=== PATIENT | female | born 1945 | race Caucasian/White ===

== ENCOUNTER → 2018-09-23 | Day surgery (SDC) | payer MEDICARE, OTHER ==
[2018-09-18 14:30] LABS: BASOPHILS % 0.4 % (0.0-1.0); EOSINOPHILS # (AUTO) 0.1 (0.0-0.4); EOSINOPHILS % 1.3 % (0.0-6.0); HEMATOCRIT 41.5 % (34.2-44.1); LYMPHOCYTES # (AUTO) 1.8 (1.0-3.2); LYMPHOCYTES % 25.6 % (18.0-39.1); MEAN CORPUSCULAR HEMOGLOBIN 31.7 pg (28-32); MEAN CORPUSCULAR HGB CONC 33.7 g/dL (31-35); MEAN CORPUSCULAR VOLUME 94.1 fL (81-99); MONOCYTES # (AUTO) 0.5 (0.2-0.8); MONOCYTES % 7.5 % (4.4-11.3); NEUTROPHILS # (AUTO) 4.6 (2.1-6.9); NEUTROPHILS % 64.8 % (38.7-80.0); PLATELET COUNT 301 x10e3/uL (140-360); RED BLOOD COUNT 4.41 x10e6/uL (3.6-5.1); RED CELL DISTRIBUTION WIDTH 13.2 % (11.7-14.4)
[~2018-09-23] MED LIST: ALEVE220 M1 PO; AMLODIPINE BES2.5 MG PO; ATENOLOL50 MG PO; BIOTIN2500 MCG PO; DOCUSATE SODIU100 MG PO; FENTANYL CITRATE/PF 100MCG/2 ML INJ ONE; LIOTHYRONINE SO5 MCG PO; PROLIA60 MG/1 ML INJ; PROPOFOL IV EMULSION 10 MG/ML 50 ML VIAL ONE; SLEEP AID25 M1 PO; SPIRONOLACTONE25 MG PO; SYNTHROID88 MCG PO; TYLENOL EXTRA500 MG PO; VITAMIN D32000 UNIT PO
--- OUTSIDE RECORDS SUMMARY | 2018-09-23 05:57 | XMS REPORT | Clinical Summary ---
Author Author [facility] Address Unknown Phone Unavailable Care Team Providers Care Animal Husbandry Technician Name Role Phone Swain, Ele Ryan PCP Allergies Comments Active Allergy Reactions Severity Noted Date Morphine Sulfate Itching, 05/29/2016 Nausea Only Medications End Date Status Medication Sig Dispensed Refills Start Date Active levothyroxine (SYNTHROID, Take 88 mcg 0 LEVOTHROID) 88 MCG tablet by mouth Every morning on an empty stomach. Active atenolol (TENORMIN) 50 MG Take 50 mg by 0 tablet mouth daily. Active liothyronine (CYTOMEL) 5 Take 5 mcg by 0 MCG tablet mouth daily. Active spironolactone Take 100 mg 0 (ALDACTONE) 100 MG tablet by mouth daily. Active spironolactone Take 50 mg by 0 (ALDACTONE) 50 MG tablet mouth daily. Active cholecalciferol, vitamin Take by 0 D3, 2,000 unit Cap mouth. Active calcium carbonate Take 1,200 mg 0 (OS-SILVIA) 600 mg (1,500 by mouth mg) Tab daily. Active b complex vitamins tablet Take 1 tablet 0 by mouth daily. Active amLODIPine (NORVASC) 2.5 Take 2.5 mg 0 MG tablet by mouth daily. Active Missing or Non-Formulary Take by mouth 0 Medication nightly Acetaminophen 500 mg with sleep aid HCI 25 mg. . Active biotin 2,500 mcg Tab Take by 0 mouth. Active LORATADINE ORAL Take by 0 mouth. Active Problems Not on file Social History Date Tobacco Use Types Packs/Day Years Used Never Smoker Alcohol Use Drinks/Week oz/Week Comments Yes 1 Standard 0.5 drinks or equivalent Sex Assigned at Date Recorded Not on file Industry Job Start Date Occupation Not on file Not on file Not on file Travel End Travel History Travel Start No recent travel history available. Last Filed Vital Signs Not on file Plan of Treatment Not on file Implants Device Identifier Shelf Expiration Date Model / Serial / Lot Implanted Type Area Manufactur er 04/03/2021 [facility] / [id number] / Natrelle Inspira Cohesive Breast IMPLANTS Right: Breast ALLERGAN Implant BREAST Implanted: Qty: 1 on 06/12/2016 by Dioni Brown MD 04/03/2021 [id number] / [id number] / Cornele Inspneftaly Cohesive Breast Left: Breast ALLERGAN Implant Implanted: Qty: 1 on 06/12/2016 by Dioni Brown MD Results Not on fileafter 09/22/2017 Insurance Payer Benefit Subscriber ID Type Phone Address Plan / Group HUMANA - MGD CARE HUMANA HMO xxxxxxxxx HMO/POS POS SPECIAL HANDLING AESTHETIC xxxxxxxxx SURGERY PROGRAM
--- OUTSIDE RECORDS SUMMARY | 2018-09-23 05:57 | XMS REPORT | Summary of Care ---
Author Author [facility] Organization [facility] Address Unknown Phone Unavailable Encounter LACHO Crabtree(THEODORE) [id number] Date(s): 12/22/16 - 12/22/16 [facility] [address] [place], [place] [address]- [phone] Discharge Diagnosis: Cellulitis of leg, right Discharge Disposition: Home or Self Care Attending Physician: Santiago Rahman MD Vital Signs Most recent to 1 2 oldest [Reference Range]: Height 165.1 cm (12/22/16 7:53 PM) Blood Pressure 129/60 mmHg 142/70 mmHg [90-140/60-90 mmHg] (12/22/16 9:10 PM) *HI* (12/22/16 7:53 PM) Respiratory Rate 18 BRMIN 18 BRMIN [14-20 BRMIN] (12/22/16 9:10 PM) (12/22/16 7:53 PM) Peripheral Pulse 72 bpm 72 bpm Rate [60-100 bpm] (12/22/16 9:10 PM) (12/22/16 7:53 PM) Weight 52.727 kg (12/22/16 7:53 PM) Body Mass Index 19.34 m2 (12/22/16 7:53 PM) Problem List Condition Effective Dates Status Health Status Informant Abnormal Active EKG(Confirmed) Hyperkalemia(Confirm Active ed) Chronic Resolved hypertension(Confirm ed) Hypertension(Confirm Active ed) Hyponatremia(Confirm Active ed) Adult Resolved hypothyroidism(Confi rmed) Hypothyroid(Confirme Active d) Hair loss(Confirmed) Active Osteoporosis(Confirm Active ed) Vitamin D Active deficiency(Confirmed ) Allergies, Adverse Reactions, Alerts Substance Reaction Severity Status morphine Itching Active Nausea Medications clindamycin 600 mg, Route: IM, ONCE, Dosing Weight 52.727, kg, Priority: STAT, Start date: 0 9/03/17 20:25:00 CDT, Duration: 1 doses or times, Stop date: 12/22/16 20:25:00 C DT, ABX Indication: Other (specify in Comments) Start Date: 12/22/16 Stop Date: 12/22/16 Status: Discontinued clindamycin 600 mg, 4 mL, Route: IM, Drug form: INJ, ONCE, Dosing Weight 52.727, kg, Priorit y: STAT, Start date: 12/22/16 20:05:00 CDT, Duration: 1 doses or times, Stop bryan e: 12/22/16 20:05:00 CDT, ABX Indication: Skin/Soft Tissue Infection Notes: (clindamycin 150 mg/1 ml (600 mg/4 ml VL) INJ) (Same As: Cleocin) Start Date: 12/22/16 Stop Date: 12/22/16 Status: Completed clindamycin 300 mg oral capsule 300 mg=1 cap, PO, Q6H, X 10 day, # 40 cap, 0 Refill(s) Start Date: 12/22/16 Stop Date: 01/01/17 Status: Ordered Results No data available for this section Immunizations No data available for this section Procedures Procedure Date Related Diagnosis Body Site Removal of gallbladder 11/14/03 Breast augmentation 04/04/00 History of total hysterectomy 03/28/94 Operative procedure on foot 10/12/91 Social History Social History Type Response Employment/School Status: Retired. Work/School description: [employer]. Smoking Status Never smoker; Type: Cigarettes; Exposure to Tobacco Smoke None; Cigarette Smoking Last 365 Days No; Reg Smoking Cessation Counseling No Assessment and Plan No data available for this section
--- OUTSIDE RECORDS SUMMARY | 2018-09-23 05:57 | XMS REPORT | Summary of Care ---
Author Author [facility] Organization [facility] Address Unknown Phone Unavailable Encounter LACHO Crabtree(THEODORE) [id number] Date(s): 06/09/18 - 06/09/18 [facility] [address] [place] [address]- [phone] Discharge Disposition: Home or Self Care Attending Physician: Richardson Chisholm MD Vital Signs Most recent to 1 oldest [Reference Range]: Height 160.02 cm (06/09/18 9:41 AM) Temperature Oral 97.5 DegF [96.4-99.1 DegF] (06/09/18 9:41 AM) Blood Pressure 116/58 mmHg [90-140/60-90 mmHg] (06/09/18 9:41 AM) Respiratory Rate 16 BRMIN [14-20 BRMIN] (06/09/18 9:41 AM) Peripheral Pulse 79 bpm Rate [60-100 bpm] (06/09/18 9:41 AM) Weight 53.182 kg (06/09/18 9:41 AM) Body Mass Index 20.77 m2 (06/09/18 9:41 AM) Problem List Condition Effective Dates Status Health Status Informant Abnormal Active EKG(Confirmed) Hyperkalemia(Confirm Active ed) Chronic Resolved hypertension(Confirm ed) Hypertension(Confirm Active ed) Hyponatremia(Confirm Active ed) Adult Resolved hypothyroidism(Confi rmed) Hypothyroid(Confirme Active d) Hair loss(Confirmed) Active Osteoporosis(Confirm Active ed) Vitamin D Active deficiency(Confirmed ) Allergies, Adverse Reactions, Alerts Substance Reaction Severity Status morphine Nausea Active Itching Medications Shingrix Shingrix, See Instructions, disp and admin series, # 2 ea, Refill(s) 0 Start Date: 06/09/18 Status: Ordered Results No data available for this section Immunizations Given and Recorded Vaccine Date Status Refusal Reason influenza virus vaccine, inactivated 01/19/18 Recorded influenza virus vaccine, inactivated 01/19/17 Recorded pneumococcal 13-valent vaccine 06/05/17 Given zoster vaccine live 03/21/13 Recorded Procedures Procedure Date Related Diagnosis Body Site Status Colonoscopy1 04/21/09 Completed Removal of gallbladder 11/14/03 Completed Breast augmentation 04/04/00 Completed History of total hysterectomy 03/28/94 Completed Operative procedure on foot 10/12/91 Completed 1self report, no polyps, cleared x 10 Social History Social History Type Response Employment/School Status: Retired. Work/School description: [employer]. Smoking Status Never smoker; Type: Cigarettes; Exposure to Tobacco Smoke None; Cigarette Smoking Last 365 Days No; Reg Smoking Cessation Counseling No entered on: 06/09/18 Assessment and Plan No data available for this section
--- OUTSIDE RECORDS SUMMARY | 2018-09-23 05:57 | XMS REPORT | Continuity of Care Document ---
Author Author [facility] Address Unknown Phone Unavailable Problems Problem Status Onset Date Classification Date Reported Comments Source Discharge Diagnosis: Cellulitis of leg, right 12/22/2016 12/25/2016 [facility] BITE Active 12/21/2016 [facility] M80.0 - AGE-RELATED OSTEOPOROSIS WITH Active 06/17/2016 [facility] Outpatient [facility] M81.0 - AGE-RELATED OSTEOPOROSIS W/O C Active 06/17/2016 [facility] Abnormal EKG Active Problem 07/31/2018 Medical [facility],[id number] Hyperkalemia Active Problem 07/31/2018 [facility],[id number] Chronic hypertension Resolved Problem 07/31/2018 [facility],[id number] Hypertension Active Problem 07/31/2018 [facility],[id number] Hyponatremia Active Problem 07/31/2018 [facility],[id number] Adult hypothyroidism Resolved Problem 07/31/2018 [facility],[id number] Hypothyroid Active Problem 07/31/2018 [facility] Outpatient [facility],[id number] Hair loss Active Problem 07/31/2018 [facility] Outpatient [facility],[id number] Osteoporosis Active Problem 07/31/2018 [facility],[id number] Vitamin D deficiency Active Problem 07/31/2018 [facility],[id number] Medications Medication Details Route Status Patient Instructions Ordering Provider Order Date Source Shingrix Shingrix, See Instructions, disp and admin series, # 2 ea, Refill(s) 0 Active 06/09/2018 [facility] Atenolol 50 MG Oral Tablet See Instructions, # 90 tab, Refill(s) 3, TAKE 1 TABLET DAILY, Pharmacy: [facility] Active 09/26/2017 [facility] amLODIPine 2.5 mg oral tablet 2.5 mg=1 tab, PO, Daily, # 90 tab, 0 Refill(s), Pharmacy: [facility] No Longer Active 05/21/2017 [facility] clindamycin 300 mg oral capsule 300 mg=1 cap, PO, Q6H, X 10 day, # 40 cap, 0 Refill(s) Active 12/23/2016 [facility] Clindamycin 600 mg, Route: IM, ONCE, Dosing Weight 52.727, kg, Priority: STAT, Start date: 12/22/16 20:25:00 CDT, Duration: 1 doses or times, Stop date: 12/22/16 20:25:00 CDT, ABX Indication: Other (specify in C omments) Inactive 12/23/2016 [facility] Clindamycin 600 mg, 4 mL, Route: IM, Drug form: INJ, ONCE, Dosing Weight 52.727, kg, Priority: STAT, Start date: 12/22/16 20:05:00 CDT, Duration: 1 doses or times, Stop date: 12/22/16 20:05:00 CDT, ABX Indication: Skin/Soft Tissue InfectionNotes: (clindamycin 150 mg/1 ml (600 mg/4 ml VL) INJ) (Same As: Cleocin) Inactive 12/23/2016 [facility] Allergies, Adverse Reactions, Alerts Substance Category Reaction Severity Reaction type Status Date Reported Comments Source morphine Assertion Nausea, Itching Drug allergy Active [id number] Immunizations Immunization Date Given Site Status Last Updated Comments Source influenza virus vaccine, inactivated 01/19/2018 completed Do [id number],[facility] pneumococcal 13-valent vaccine 06/05/2017 Right Deltoid completed [facility],[id number] influenza virus vaccine, inactivated 01/19/2017 completed [facility],[id number] zoster vaccine live 03/21/2013 completed [facility],[id number] Results Order Name Results Value Reference Range Date Interpretation Comments Source Bone Density DXA [employer] MA Bone Density [employer] MA BONE DENSITY ASSESSMENT: 07/29/2018 CLINICAL DATA: Post menopausal. M81.0 Age related osteoporosis without current pathological fracture. /M81.0 Osteoporosis RISK FACTORS: race. COMPARISON: 07/16/2016 Right total femur area using a Hologic unit from [facility] with reported medium fracture risk, BMD of 0.723g/cm2, T-score of -1.80, and Z- score of -0.30. 07/16/2016 AP L1-L4 region of spine using a Hologic unit from [facility] with reported medium fracture risk, BMD of 0.875g/cm2, T-score of - 1.60, and Z-score of 0.60. 07/16/2016 Left femur neck using a Hologic unit from [facility] with reported medium fracture risk, BMD of 0.631g/cm2, T-score of -2.00, and Z- score of -0.10. FINDINGS: Bone density evaluation was performed 07/29/2018 on the right femur neck using a Hologic unit. The BMD average for the exam is 0.648 g/cm2. The T-score is -1.80 and the Z-score is 0.10. This matches the World Health Organization's criteria for osteopenia and places the patient at a medium risk for fracture. An additional bone density evaluation was performed 07/29/2018 on the left femur neck using a Hologic unit. The BMD average for the exam is 0.614 g/cm2. The T- score is -2.10 and the Z-score is -0.20. Since the previous similar exam of 07/16/2016, there has been a -0.017 or -2.7% change in the BMD value which represents no significant interval change in bone density. This matches the World Health Organization's criteria for osteopenia and places the patient at a medium risk for fracture. An additional bone density evaluation was performed 07/29/2018 on the right total femur area using a Hologic unit. The BMD average for the exam is 0.673 g/cm2. The T-score is -2.20 and the Z-score is -0.60. Since the previous similar exam of 07/16/2016, there has been a -0.050 or -6.9% change in the BMD value which represents no significant interval change in bone density. This matches the World Health Organization's criteria for osteopenia and places the patient at a medium risk for fracture. An additional bone density evaluation was performed 07/29/2018 on the left total femur area using a Hologic unit. The BMD average for the exam is 0.692 g/cm2. The T-score is -2.00 and the Z-score is -0.40. This matches the World Health Organization's criteria for osteopenia and places the patient at a medium risk for fracture. An additional bone density evaluation was performed 07/29/2018 on the AP L1-L4 region of spine using a Hologic unit. The BMD average for the exam is 0.861 g/cm2. The T-score is -1.70 and the Z-score is 0.60. Since the previous similar exam of 07/16/2016, there has been a -0.014 or -1.6% change in the BMD value which represents no significant interval change in bone density. This matches the World Health Organization's criteria for osteopenia and places the patient at a medium risk for fracture. IMPRESSION: OSTEOPENIA Patient is at medium risk for fracture. Patient consult w/primary care provider is recommended. This exam was interpreted at [id number] at [facility]. Maranda cohen/chavez:07/30/2018 08:05:13 Cover Cutter(s): Bimal Evans [facility] 07/29/2018 - - Read by: Maranda Cameron MD Dictated Date/time: 07/30/18 08:05 Electronically Signed by: Maranda Cameron MD 07/30/18 08:05 FINAL REPORT [facility] Bone Density DXA [employer] MA Bone Density [employer] MA - Bone Density [employer] MA BONE DENSITY EVALUATION: 07/16/2016 CLINICAL DATA: Post menopausal. M80.0. RISK FACTORS: race and history of previous fracture. FINDINGS: Bone density evaluation was performed 07/16/2016 on the AP L1-L4 region of spine using a Hologic unit. The BMD average for the exam is 0.875 g/cm2. The T-score is -1.60 and the Z-score is 0.60. This matches the World Health Organization's criteria for osteopenia and places the patient at a medium risk for fracture. An additional bone density evaluation was performed 07/16/2016 on the right femur neck using a Hologic unit. The BMD average for the exam is 0.635 g/cm2. The T-score is -1.90 and the Z-score is -0.10. This matches the World Health Organization's criteria for osteopenia and places the patient at a medium risk for fracture. An additional bone density evaluation was performed 07/16/2016 on the right total femur area using a Hologic unit. The BMD average for the exam is 0.723 g/cm2. The T-score is -1.80 and the Z-score is -0.30. This matches the World Health Organization's criteria for osteopenia and places the patient at a medium risk for fracture. An additional bone density evaluation was performed 07/16/2016 on the left femur neck using a Hologic unit. The BMD average for the exam is 0.631 g/cm2. The T- score is -2.00 and the Z-score is -0.10. This matches the World Health Organization's criteria for osteopenia and places the patient at a medium risk for fracture. An additional bone density evaluation was performed 07/16/2016 on the left total femur area using a Hologic unit. The BMD average for the exam is 0.700 g/cm2. The T-score is -2.00 and the Z-score is -0.50. This matches the World Health Organization's criteria for osteopenia and places the patient at a medium risk for fracture. IMPRESSION: OSTEOPENIA Patient is at medium risk for fracture. Professional services are provided by the [facility]. This exam was dictated and interpreted by [id number] at [facility]. Maranda Cameron M.D. to/penrad:07/17/2016 08:36:39 Cover Cutter: Kirsty GAITAN(Sarah)(M), [facility] 07/16/2016 - - Read by: Maranda Cameron MD Dictated Date/time: 07/17/16 08:36 Electronically Signed by: Maranda Cameron MD 07/17/16 08:36 FINAL REPORT [facility] Outpatient [facility] Vital Signs Vital Sign Value Date Comments Source Height 160.02 cm 06/09/2018 [facility] BMI Calculated 20.77 06/09/2018 [facility] Heart Rate 79 06/09/2018 [facility] Systolic (mm Hg) 116 06/09/2018 [facility] Diastolic (mm Hg) 58 06/09/2018 [facility] Temperature Oral (F) 97.5 F 06/09/2018 [facility] Respitory Rate 16 06/09/2018 [facility] Weight 53.182 06/09/2018 [facility] Respitory Rate 16 06/05/2017 [facility] Weight 53.295 06/05/2017 [facility] Temperature Oral (F) 98.5 F 06/05/2017 [facility] Heart Rate 70 06/05/2017 Medical [facility] BMI Calculated 20.81 06/05/2017 [facility] Systolic (mm Hg) 113 06/05/2017 [facility] Diastolic (mm Hg) 75 06/05/2017 [facility] Height 160.02 cm 06/05/2017 [facility] Heart Rate 72 12/23/2016 [facility] Respitory Rate 18 12/23/2016 [facility] Systolic (mm Hg) 129 12/23/2016 [facility] Diastolic (mm Hg) 60 12/23/2016 [facility] Weight 52.727 12/23/2016 [facility] BMI Calculated 19.34 12/23/2016 [facility] Height 165.1 cm 12/23/2016 [facility] Respitory Rate 18 12/23/2016 [facility] Heart Rate 72 12/23/2016 [facility] Systolic (mm Hg) 142 12/23/2016 [facility] Diastolic (mm Hg) 70 12/23/2016 [facility] Encounters Location Location Details Encounter Type Encounter Number Reason For Visit Attending Provider ADM Date DC Date Status Source [facility]patient [facility] Outpt Diag Services [id number] Non Physician 07/16/2016 07/17/2016 [facility] Outpatient Imaging [facility] Emergency [id number] Santiago Josiah 12/23/2016 12/23/2016 [facility] Phone Message [id number] 05/20/2017 05/22/2017 [facility] Primary Care Summer Lovelock [facility] Outpatient [id number] Richardson Do 06/05/2017 06/06/2017 [facility] Primary [facility] Phone Message [id number] 09/09/2017 09/11/2017 Medical Group [facility] Phone Message [id number] 09/19/2017 09/21/2017 [facility] Phone Message [id number] 09/25/2017 09/27/2017 [facility] Primary Care Summer Lovelock [facility] Outpatient [id number] Richardson Do 06/09/2018 06/10/2018 Medical [facility] Outpatient [facility] [place] Outpt Diag Services [id number] Lydia De Luna 07/29/2018 07/30/2018 [id number] Procedures Procedure Code Date Perfomer Comments Source Colonoscopy<sup>1</sup> [id number] 04/21/2009 self report, no polyps, cleared x 10 [facility] Colonoscopy<sup>1</sup> [id number] 04/21/2009 self report, no polyps, cleared x 10 [id number] Removal of gallbladder [id number] 11/14/2003 [facility] Removal of gallbladder [id number] 11/14/2003 [facility] Outpatient [facility] Removal of gallbladder [id number] 11/14/2003 [id number] Removal of gallbladder [id number] 11/14/2003 [facility] Breast augmentation [id number] 04/04/2000 [facility] Breast augmentation [id number] 04/04/2000 [facility] Breast augmentation [id number] 04/04/2000 [id number] Breast augmentation [id number] 04/04/2000 [facility] History of total hysterectomy [id number] 03/28/1994 Medical Group History of total hysterectomy [id number] 03/28/1994 [facility]patient [facility] History of total hysterectomy [id number] 03/28/1994 [id number] History of total hysterectomy [id number] 03/28/1994 [facility] Operative procedure on foot [id number] 10/12/1991 Medical [facility] Operative procedure on foot [id number] 10/12/1991 [facility]patient [facility] Operative procedure on foot [id number] 10/12/1991 [id number] Operative procedure on foot [id number] 10/12/1991 [facility]
--- OUTSIDE RECORDS SUMMARY | 2018-09-23 05:58 | XMS REPORT | Summary of Care ---
Author Author [facility] Organization [facility] Address Unknown Phone Unavailable Encounter HQ Encntr_alimichael(FIN) [id number] Date(s): 09/19/17 - 09/20/17 [facility] [address] [place], [place] [address]- [phone] Vital Signs No data available for this section Problem List Condition Effective Dates Status Health Status Informant Abnormal Active EKG(Confirmed) Hyperkalemia(Confirm Active ed) Chronic Resolved hypertension(Confirm ed) Hypertension(Confirm Active ed) Hyponatremia(Confirm Active ed) Adult Resolved hypothyroidism(Confi rmed) Hypothyroid(Confirme Active d) Hair loss(Confirmed) Active Osteoporosis(Confirm Active ed) Vitamin D Active deficiency(Confirmed ) Allergies, Adverse Reactions, Alerts Substance Reaction Severity Status morphine Nausea Active Itching Medications No data available for this section Results No data available for this section Immunizations Given and Recorded Vaccine Date Status Refusal Reason pneumococcal 13-valent vaccine 06/05/17 Given influenza virus vaccine, inactivated 01/19/17 Recorded zoster vaccine live 03/21/13 Recorded Procedures Procedure [...] Reg Smoking Cessation Counseling No entered on: 06/05/17 Assessment and Plan No data available for this section
--- OUTSIDE RECORDS SUMMARY | 2018-09-23 05:58 | XMS REPORT ---
[facility] Address Unknown Phone Unavailable Care Team Providers Care Edi Architect Name Role Phone Unavailable Unavailable Problems This patient has no known problems. Allergies, Adverse Reactions, Alerts This patient has no known allergies or adverse reactions. Medications This patient has no known medications. Results Test Description Test Time Test Comments Text Results Atomic Results Result Comments MM, DIGITAL, MAMMO, SCREENING, IMPLANT, BILATERAL INCLUDING CAD 2017-06-11 14:01:00 Reason for Exam:->screening #[id number] - MM, DIGITAL, MAMMO, SCREENING, IMPLANT, BILATERAL INCLUDING CADBILATERAL DIGITAL SCREENING MAMMOGRAM 3D/2D WITH CAD WITH AUGMENTATION: 06/11/2017Comparison is made to exams dated: 12/26/2015 mammogram and 10/20/2014 mammogram - [facility]. The tissue of both breasts is heterogeneously dense. This may lower the sensitivity of mammography. Bilateral prepectoral silicone implants are present. Implants may obscure breast parenchyma, making mammographic interpretation difficult. Tomosynthesis 3D imaging of the breast was also performed. Current study was also evaluated with a Computer Aided Detection (CAD) system. Benign appearing vascular calcifications are present in the right breast. There is a post-surgical scar associated with the left breast. Examination indicates a biopsy marker in the left breast. No significant other findings are seen in either breast. IMPRESSION: BENIGNThere is no mammographic evidence of malignancy. A 1 year screening mammogram is recommended. Jacob Stone M.D. pth/:06/11/2017 14:01:39 Normal Exam Mammogram BI-RADS: 2 Benign [id number]
--- OUTSIDE RECORDS SUMMARY | 2018-09-23 05:58 | XMS REPORT | Summary of Care ---
Author Author [facility] Organization [facility] Address Unknown Phone Unavailable Encounter LACHO Malhotrar_madisyn(FIN) [id number] Date(s): 05/20/17 - 05/21/17 [facility] [address] [place], [place] [address]- [phone] Vital Signs No data available for this [...] Severity Status morphine Nausea Active Itching Medications amLODIPine 2.5 mg oral tablet 2.5 mg=1 tab, PO, Daily, # 90 tab, 0 Refill(s), Pharmacy: [facility] Start Date: 05/21/17 Stop Date: 06/05/17 Status: Discontinued Results No data available for this section [...]
--- OUTSIDE RECORDS SUMMARY | 2018-09-23 05:58 | XMS REPORT | Summary of Care ---
Author Author [facility] Organization [facility] Address Unknown Phone Unavailable Encounter LACHO Crabtree(FIN) [id number] Date(s): 06/05/17 - 06/05/17 [facility] [address] [place] [address]- [phone] Discharge Disposition: Home or Self Care Attending Physician: Richardson Chisholm MD Vital Signs Most recent to 1 oldest [Reference Range]: Height 160.02 cm (06/05/17 11:12 AM) Temperature Oral 98.5 DegF [96.4-99.1 DegF] (06/05/17 11:12 AM) Blood Pressure 113/75 mmHg [90-140/60-90 mmHg] (06/05/17 11:12 AM) Respiratory Rate 16 BRMIN [14-20 BRMIN] (06/05/17 11:12 AM) Peripheral Pulse 70 bpm Rate [60-100 bpm] (06/05/17 11:12 AM) Weight 53.295 kg (06/05/17 11:12 AM) Body Mass Index 20.81 m2 (06/05/17 11:12 AM) Problem List Condition Effective Dates Status [...]
--- OUTSIDE RECORDS SUMMARY | 2018-09-23 05:58 | XMS REPORT | Summary of Care ---
Author Author [facility] Outpatient Imaging [facility] [place] Address Unknown Phone Unavailable Encounter LACHO Crabtree(THEODORE) [id number] Date(s): 07/29/18 - 07/29/18 [facility] [place] [address] [place], [place] [address] Discharge Disposition: Home or Self Care Attending Physician: Lydia De Luna MD Referring Physician: Lydia De Luna MD Vital Signs No data available for this [...]
--- OUTSIDE RECORDS SUMMARY | 2018-09-23 05:58 | XMS REPORT | Summary of Care ---
Author Author [facility] Organization [facility] Address Unknown Phone Unavailable Encounter LACHO Crabtree(FIN) [id number] Date(s): 09/25/17 - 09/26/17 [facility] [address] [place], [place] [address]- [phone] Vital Signs No data available for this [...] Severity Status morphine Nausea Active Itching Medications atenolol 50 mg oral tablet See Instructions, # 90 tab, Refill(s) 3, TAKE 1 TABLET DAILY, Pharmacy: [facility] Start Date: 09/25/17 Status: Ordered Results No data available for [...] Reg Smoking Cessation Counseling No entered on: 2/15/18 Assessment and Plan No data available for this section
--- OUTSIDE RECORDS SUMMARY | 2018-09-23 05:58 | XMS REPORT | Summary of Care ---
Author Author [facility] Outpatient Imaging [facility] Outpatient Imaging [facility] Address Unknown Phone Unavailable Encounter HQ Maryar_madisyn(FIN) [id number] Date(s): 07/16/16 - 07/16/16 [facility] Outpatient Imaging [facility] [address] Discharge Disposition: Home or Self Care Attending Physician: Physician, Non Associated MD Vital Signs No data available for this section Problem List Condition Effective Dates Status Health Status Informant Abnormal Active EKG(Confirmed) Hyperkalemia(Confirm Active ed) Hypertension(Confirm Active ed) Hyponatremia(Confirm Active ed) Hypothyroid(Confirme Active d) Hair loss(Confirmed) Active Osteoporosis(Confirm Active ed) Vitamin D Active deficiency(Confirmed ) Allergies, Adverse Reactions, Alerts Substance Reaction Severity Status morphine Itching Active Nausea Medications No data available for this section Results No data available for this section Immunizations No data available for this section Procedures Procedure Date Related Diagnosis Body Site Removal of gallbladder 11/14/03 Breast augmentation 04/04/00 History of total hysterectomy 03/28/94 Operative procedure on foot 10/12/91 Social History Social History Type Response Employment/School Status: Retired. Work/School description: [employer]. Smoking Status Never smoker; Exposure to Tobacco Smoke None; Cigarette Smoking Last 365 Days No; Reg Smoking Cessation Counseling No Assessment and Plan No data available for this section
--- OUTSIDE RECORDS SUMMARY | 2018-09-23 05:58 | XMS REPORT | Summary of Care ---
Author Author [facility] Organization [facility] Address Unknown Phone Unavailable Encounter HQ Encntr_alias(FIN) [id number] Date(s): 09/09/17 - 09/10/17 [facility] [address] [place], [place] [address]- [phone] Vital Signs No data available for this [...]
--- NOTE | 2018-09-23 07:10 | NUR ---
SPIRITUAL CARE - Pre-Surgery Assessment: Pt in bed. Pt reported supportive attention from family and friends. Intervention: I provided pastoral presence, hospitality, sympathetic listening, and prayer. I acquainted pt with availability of education nurse while hospitalized. Outcome: Pt expressed appreciation for visit. No need for follow up indicated at this time. ROWDY Moraleslain Spiritual Care Department O: [phone] Pager: [phone] ([phone] + number calling from)
[2018-09-23 09:55] VITALS: BP 116/64
--- NOTE | 2018-09-23 12:48 | Operative Report ---
DATE OF PROCEDURE: 09/23/2018 SURGEON: Jaren Davis MD PROCEDURE: Esophagogastroduodenoscopy with biopsies. INDICATIONS FOR EGD: Upper abdominal pain. MEDICATIONS: The patient was done under MAC, please see anesthesiologist's note. PROCEDURE IN DETAIL: With the patient in left lateral decubitus position, the flexible fiberoptic Olympus gastroscope was introduced into the esophagus under direct visualization without any difficulty. There was some patchy erythema noted in distal esophagus. The scope was then advanced with ease into the stomach traversing a small sliding hiatal hernia. Mucosa overlying the antrum and the body revealed some patchy intense erythema and [id number] edema and biopsies were obtained and sent to stain for H pylori. The pylorus was of normal contour and shape, it was intubated with ease and the scope was advanced all the way to the second portion of the duodenum. Biopsies were obtained from the second portion and the duodenal bulb to rule out sprue. The scope was then withdrawn back into the stomach and retroflexed and the mucosa overlying the fundus and the cardia appeared to be within normal limits. The scope was then straightened out, it was subsequently withdrawn. The patient tolerated procedure well. IMPRESSION: 1. Distal esophagitis, mild. 2. Small sliding hiatal hernia. 3. Gastritis, biopsied, biopsies sent to stain for H pylori. 4. Rule out sprue. PLAN: Follow up histology. Initiate Protonix 40 mg one p.o. q.a.m. a.c. Jaren Davis MD [facility] [place] /[id number] cc: Markie Bai MD
== END | disposition home or self-care (01) ==
LOC: OR 05:55
PROVIDERS: ATTEND Internal Medicine Gastroenterology
DX: K29.70 Gastritis, unspecified, without bleeding (principal); K29.80 Duodenitis without bleeding; K20.9 Esophagitis, unspecified; K44.9 Diaphragmatic hernia without obstruction or gangrene; M19.90 Unspecified osteoarthritis, unspecified site; Z88.6 Allergy status to analgesic agent; Z01.810 Encounter for preprocedural cardiovascular examination; Z01.812 Encounter for preprocedural laboratory examination
CPT/HCPCS: 36415; 43239; 85025; 88305; 88312; 93005; J2704